=== PATIENT | male | born 1940 | race Caucasian/White ===

== ENCOUNTER → 2018-01-21 | Day surgery (SDC) | payer OTHER ==
[2018-01-17 17:34] LABS: BASOPHILS # (AUTO) 0.1 (0.0-0.1); BASOPHILS % 0.7 % (0.0-1.0); EOSINOPHILS # (AUTO) 0.7 (0.0-0.4); EOSINOPHILS % 8.2 % (0.0-6.0); HEMATOCRIT 42.7 % (38.2-49.6); LYMPHOCYTES # (AUTO) 2.5 (1.0-3.2); LYMPHOCYTES % 31.1 % (18.0-39.1); MEAN CORPUSCULAR HEMOGLOBIN 30.5 pg (28-32); MEAN CORPUSCULAR HGB CONC 32.8 g/dL (31-35); MONOCYTES # (AUTO) 0.7 (0.2-0.8); MONOCYTES % 8.7 % (4.4-11.3); NEUTROPHILS # (AUTO) 4.1 (2.1-6.9); NEUTROPHILS % 50.9 % (38.7-80.0); PLATELET COUNT 235 x10e3/uL (140-360); RED BLOOD COUNT 4.59 x10e6/uL (4.3-5.7); RED CELL DISTRIBUTION WIDTH 12.7 % (11.7-14.4)
[2018-01-17 17:48] LABS: ANION GAP 14.7 mmol/L (8-16); BLOOD UREA NITROGEN 13 mg/dL (7-26); BUN/CREATININE RATIO 14 (6-25); CALCIUM 9.7 mg/dL (8.4-10.2); CARBON DIOXIDE 26 mmol/L (22-29); CHLORIDE 101 mmol/L (98-107); CREATININE, SERUM 0.94 mg/dL (0.72-1.25); EST GLOMERULAR FILTRATION RATE > 60 ML/MIN (60-); GLUCOSE 163 mg/dL (74-118); POTASSIUM 4.7 mmol/L (3.5-5.1); SODIUM 137 mmol/L (136-145)
--- NOTE | 2018-01-17 17:55 | Diagnostic Imaging Report ---
EXAMINATION: CHEST 2 VIEWS INDICATION: \S\PRE-OP \[id number] \[id number] COMPARISON: None FINDINGS: PA and lateral views TUBES and LINES: None. LUNGS: Lungs are well inflated. Minimal left basilar subsegmental atelectasis. There is no evidence of pneumonia or pulmonary edema. PLEURA: No significant pleural effusion or pneumothorax. HEART AND MEDIASTINUM: The cardiomediastinal silhouette is unremarkable. BONES AND SOFT TISSUES: No acute osseous lesion. Soft tissues are unremarkable. UPPER ABDOMEN: No free air under the diaphragm. IMPRESSION: No acute thoracic abnormality. Signed by: Dr. Juan Antonio Hernandez MD on 01/17/2018 5:51 PM
[~2018-01-21] MED LIST: ALBUTEROL0.63 MG/3 INH; B-121000 MCG PO; BUPIVACAINE HCL 0.5% INJ 30 ML VIAL INJ ONE; CEFAZOLIN SOD 2 GM/D5W 50ML 50 ML IV ONE; DEXAMETHASONE SOD PHOS INJ 4 MG/ML VIAL ONE; EPHEDRINE SULFATE INJ 50 MG/10 ML SYR ONE; FENTANYL CITRATE/PF 100MCG/2 ML INJ ONE; FLUVASTATIN SOD20 MG PO; LIDOCAINE HCL 2% LOCAL INJ 5 ML SDV VIAL INJ ONE; METFORMIN HCL500 MG PO; METOPROLOL SUCC25 MG; METOPROLOL TART25 MG PO; MIDAZOLAM HCL 2 MG/2 ML VIAL ONE; MULTI-VITAMIN1 EACH PO; NEOSTIGMINE 1 MG/ML 10ML VIAL ONE; ONDANSETRON HCL INJ 2 MG/ML VIAL ONE; PROPOFOL IV EMULSION 10 MG/ML 20 ML VIAL ONE; SEVOFLURANE INHAL SOLN 250 ML PEN BTL ONE; VITAMIN B COMP1 EACH PO; VITAMIN E400 UNIT PO
[2018-01-21 09:10] VITALS: BP 155/82
--- NOTE | 2018-01-21 10:06 | Operative Report ---
DATE OF PROCEDURE: January 21, 2018 PREOPERATIVE DIAGNOSIS: Rigidly contracted hammertoes, digits 4 and 5 of the left foot with interdigital lesions and ulceration. POSTOPERATIVE DIAGNOSIS: Rigidly contracted hammertoes, digits 4 and 5 of the left foot with interdigital lesions and ulceration. TITLE OF OPERATION: Arthroplasty, 4th and 5th digits of the left foot. ANESTHESIA: General endotracheal. HEMOSTASIS: A left thigh tourniquet at 350 mmHg. PROCEDURE IN DETAIL: The patient was taken to the operating room in a mildly state and placed upon the operating table in the supine position. Following induction of general anesthetic, the left lower extremity was elevated to 30 degrees to exsanguinate before inflating the pneumatic thigh tourniquet to 350 mmHg for hemostasis. Left lower extremity was placed upon the operating table prior to performing the following procedure: PROCEDURE #1: Modified arthroplasty, 4th and 5th digits of the left foot. A linear longitudinal incision was made across the dorsal aspect of the 4th and 5th digits of the left foot. It was noted that there were currently no ulcerations. 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 These areas of hyperkeratosis were debrided prior to making the digital incisions overlying the 4th and 5th digits separately. These incisions was deepened via sharp and blunt dissection down to the level of the dorsal capsular structure and extensor tendon. A transverse tenotomy was performed and the head of the proximal phalanx was delivered in the 2 separate wounds simultaneously, both the 4th and 5th digit proximal interphalangeal joints. The head of the proximal phalanx, both 4th and 5th digits were removed on the left foot. The area was irrigated with copious amounts of sterile saline solution. The appropriate alignment was approximated, and the extensor tendons were repaired utilizing 3-0 Vicryl. Deep closure was 4-0 Vicryl and skin closure 4-0 nylon for both 4th and 5th digits of the left foot. Appropriate mildly compressive dressings were applied, including Betadine splinting and the release of the pneumatic thigh tourniquet showed a normal hyperemic flush to all digits of the left foot. The patient left the operating room with vital signs stable and in apparent satisfactory condition, having tolerated both anesthetic and procedure very well. Job#: [id number]
== END | disposition home or self-care (01) ==
LOC: OR 05:16
PROVIDERS: ATTEND Podiatrist Foot Surgery
DX: M20.42 Other hammer toe(s) (acquired), left foot (principal); E11.621 Type 2 diabetes mellitus with foot ulcer; L97.529 Non-pressure chronic ulcer of other part of left foot with unspecified severity; I10 Essential (primary) hypertension; J44.9 Chronic obstructive pulmonary disease, unspecified; I45.10 Unspecified right bundle-branch block; Z01.810 Encounter for preprocedural cardiovascular examination; Z01.812 Encounter for preprocedural laboratory examination; Z01.818 Encounter for other preprocedural examination; Z79.84 Long term (current) use of oral hypoglycemic drugs
CPT/HCPCS: 28285 ×2; 36415 ×2; 71046; 80048; 82948; 85025; 93005; J1100; J2001; J2250; J2405; 76000; J2710